=== PATIENT | male | born 1970 | race Native Hawaiian/Other Pacific Islander ===

== ENCOUNTER 2017-04-30 15:57 | Emergency (ER) | payer SELFPAY ==
[~2017-04-30] VITALS: Ht 188 cm; Wt 73.0 kg
[2017-04-30 16:29] VITALS: BP 142/82; PULSE 80; RESP 16; TEMP 97.3; O2SAT 98
[2017-04-30] MEDS ORDERED: ATAC8TAB PO (16:53)
--- NOTE | 2017-04-30 17:21 | PD ---
HPI Chief Complaint: ENT Complaint Time Seen by Provider: 16:50 Travel History International Travel<30 days: No Contact w/Intl Traveler<30days: No Traveled to known affect area: No History of Present Illness HPI 46-year-old male presents to the emergency room for evaluation of sore throat for the past 2 days. Patient has been using Moseley's cough drops without significant relief in symptoms. Pain is worsened with drinking or eating. No associated fever, chills, nausea, vomiting, cough, or congestion. He denies any chronic medical conditions or daily medications. His son is sick with similar symptoms. [facility] Past Medical History Diminished Hearing: No Hypertension: Yes ?: Not Past Surgical History Surgical History: No Previous Surgery Social History Alcohol Use: No Tobacco Use: Yes (occ) Substance Use: No Allergies-Medications (Allergen,Severity, Reaction): Coded Allergies: No Known Allergies (Unverified , 04/30/17) Reported Meds & Prescriptions Reported Meds & Active Scripts Active Reported Atacand (Candesartan Cilexetil) 8 Mg Tab 8 Mg PO DAILY Review of Systems Except as stated in HPI: all other systems reviewed are Neg Physical Exam Narrative GENERAL: Well-nourished, well-developed male in no acute distress. Afebrile. Ambulatory. SKIN: Focused skin assessment warm/dry. HEAD: Normocephalic. EYES: No scleral icterus. No injection or drainage. ENT: Mucosa pink and moist. Very mild erythema without edema or exudates. No uvular edema. No uvular, palatal, or tonsillar deviation. Airway patent. Nasal turbinates appear normal without nasal blood, purulent drainage or septal hematoma. NECK: Supple, trachea midline. No JVD or lymphadenopathy. CARDIOVASCULAR: Regular rate and rhythm without murmurs, gallops, or rubs. RESPIRATORY: Breath sounds equal bilaterally. No accessory muscle use. Data Data Last Documented VS Vital Signs Date Time Temp Pulse Resp B/P (MAP) Pulse Ox O2 Delivery O2 Flow Rate FiO2 04/30/17 16:29 97.3 80 16 142/82 (102) 98 Orders Orders Group A Rapid Strep Screen (04/30/17 16:33) Strep Culture (Group A) (04/30/17 16:32) MDM Medical Decision Making Medical Screen Exam Complete: Yes Emergency Medical Condition: Yes Medical Record Reviewed: Yes Differential Diagnosis Pharyngitis, strep, influenza, URI Narrative Course 46-year-old male presents to the emergency room for evaluation of sore throat for the past 2 days. No associated symptoms. No fevers. His son has similar symptoms. Physical exam is reassuring. Patient has mild erythema the pharynx without exudates or edema. Rapid strep is negative. Vital signs stable. Patient told to follow-up with a primary care physician or return for worsening symptoms. He understands and agrees to plan. Diagnosis Primary Impression: Acute viral pharyngitis Referrals: Primary Care Physician Additional Instructions: Rest and drink plenty of fluids. Take ibuprofen with food as directed, as needed for pain. Follow-up with a primary care physician. Return to the emergency room for worsening symptoms. Med/Other Pt SpecificInfo: Prescription(s) given Disposition: 01 DISCHARGE HOME Condition: Stable Rocio Fragoso Apr 30, 2017 17:21
== END 2017-04-30 17:36 | disposition home or self-care (01) ==
LOC: NEPD 15:57
DX: J02.8 Acute pharyngitis due to other specified organisms (principal); B97.89 Other viral agents as the cause of diseases classified elsewhere; I10 Essential (primary) hypertension; Z72.0 Tobacco use
CPT/HCPCS: 87081; 87880; 99283